=== PATIENT | female | born 1990 | race Caucasian/White ===

== ENCOUNTER 2017-03-18 05:53 | Inpatient (IN) ==
[2017-03-18] MEDS ORDERED: BUTORPHANOL 2 MG/ML VIAL IV PRN (06:14)
[2017-03-18] MEDS: LACTATED RINGERS 1,000 ML IV SCH ×2 (06:28→13:42)
[2017-03-18 06:37] LABS: Basophils % 0.3 % (0.0-0.8); Eosinophils # 0.2 10*3/uL (0.0-0.87); Eosinophils % 1.2 % (0.00-10.9); Hematocrit 34.3 VOL% (35.7-47.0); Hemoglobin 11.5 GM/DL (12.0-16.0); Immature Granulocytes % 1.2 %; Immature Granulocytes Absolute 0.16 #; Lymphocytes % 15.3 % (21.3-54.2); Mean Corpuscular HGB Conc 33.5 GM/DL (32-36); Mean Corpuscular Hemoglobin 30 PG (27-34); Mean Corpuscular Volume 87.9 FL (87-102); Mean Platelet Volume 12.8 FL (9.6-12.0); Monocytes # 1.3 10*3/uL (0.11-0.8); Monocytes % 10.4 % (1.7-12.7); Neutrophils # 9.3 10*3/uL (1.4-7.4); Neutrophils % 71.6 % (38.7-73.9); Platelet Count 160 T/CUMM (130-400); Red Cell Distribution Width 14.4 % (9.3-17.3); White Blood Count 12.9 T/CUMM (4-12)
[2017-03-18] MEDS: OXYTOCIN/LR 20 UNIT/1,000 ML BAG IV SCH (06:50)
[2017-03-18] MEDS ORDERED: CLINDAMYCIN INJ 900 MG in PREMIX 1 EACH IV SCH (07:00)
[2017-03-18] MEDS: ONDANSETRON 4 MG/2 ML VIAL IV PRN (14:50)
[2017-03-18] MEDS: CLINDAMYCIN INJ 900 MG in PREMIX 1 EACH IV SCH (16:23)
[2017-03-18] MEDS ORDERED: CITRIC ACID/SODIUM CITRATE 30 ML UDCUP PO ONE (18:20)
[2017-03-18] MEDS ORDERED: FAMOTIDINE 20 MG/2 ML VIAL IV ONE (18:20)
[2017-03-18] MEDS ORDERED: ONDANSETRON 4 MG/2 ML VIAL ONE (18:55)
[2017-03-18] MEDS ORDERED: PHENYLEPHRINE 1 MG/10 ML SYRINGE IV ONE (18:55)
[2017-03-18] MEDS ORDERED: ACETAMINOPHEN 325 MG TABLET PO PRN (19:58)
[2017-03-18] MEDS ORDERED: OXYTOCIN/LR 20 UNIT/1,000 ML BAG IV ONE (19:58)
[2017-03-18] MEDS ORDERED: IBUPROFEN 800 MG TABLET PO PRN (19:58)
[2017-03-18] MEDS ORDERED: MAGNESIUM HYDROXIDE SUSP 30 ML UDCUP PO PRN (19:58)
[2017-03-18] MEDS ORDERED: ONDANSETRON 4 MG/2 ML VIAL IV PRN (19:58)
[2017-03-18] MEDS ORDERED: SIMETHICONE CHEW 80 MG TABLET PO PRN (19:58)
[2017-03-18] MEDS ORDERED: RHO(D) IMMUNE GLOBULIN 300 MCG SYRINGE IM ONE (19:58)
--- NOTE | 2017-03-18 20:05 | History and Physical Update ---
History and Physical Update - History and Physical H&P was reviewed, the patient examined and there: are no changes in the patients condition since last H&P was completed. - Dictation Physical: refer to scanned H&P - Physical Exam Mental Status: alert and oriented Heart: regular rate and rhythm Lung: clear to auscultation Abdomen: within normal limits Vitals: within normal limits History and Physical Changes: 39 weeks for induction. care without complications. GBS + with a Ceclor allergy.
[2017-03-18] MEDS ORDERED: MORPHINE 10 MG/10 ML VIAL ONE (20:06)
[2017-03-18 20:19] LABS: Apearance,Urine CLEAR (Clear); Bilirubin,Urine Negative (Negative); Blood, Urine Small mg/dL (Negative); Glucose,Urine (UA) Negative (Negative); Ketones,Urine 80 mg/dL (Negative); Mucus,Urine Occasional /LPF (Occasional); Nitrite,Urine Negative (Negative); Protein,Urine Negative; RBC,Urine 2 /HPF (0-4); Squamous Epithelial Cell,Urine Occasional /HPF (0-10); Urine Color Yellow (Yellow); Urine Urobilinogen < 2.0 EU/DL (0.2-1.0); WBC,Urine 11 /HPF (0-6)
[2017-03-18] MEDS: DOCUSATE SODIUM 100 MG CAPSULE PO SCH (21:10)
[2017-03-19] MEDS ORDERED: HYDROmorphone 2 MG/1 ML VIAL IV PRN (00:09)
[2017-03-19] MEDS: ONDANSETRON 4 MG/2 ML VIAL IV PRN (00:15)
[2017-03-19] MEDS: LACTATED RINGERS 1,000 ML IV SCH ×4 (02:57→21:12)
[2017-03-19] MEDS: CLINDAMYCIN INJ 900 MG in PREMIX 1 EACH IV SCH ×3 (03:49→21:13)
[2017-03-19 05:05] LABS: Basophils % 0.2 % (0.0-0.8); Eosinophils % 0.1 % (0.00-10.9); Hematocrit 28.5 VOL% (35.7-47.0); Hemoglobin 9.6 GM/DL (12.0-16.0); Immature Granulocytes % 0.8 %; Lymphocytes # 1.2 10*3/uL (1.4-4.0); Lymphocytes % 9.3 % (21.3-54.2); Mean Corpuscular HGB Conc 33.7 GM/DL (32-36); Mean Corpuscular Hemoglobin 29 PG (27-34); Mean Corpuscular Volume 85.8 FL (87-102); Mean Platelet Volume 13.3 FL (9.6-12.0); Monocytes # 1.2 10*3/uL (0.11-0.8); Monocytes % 9.3 % (1.7-12.7); Neutrophils # 10.4 10*3/uL (1.4-7.4); Neutrophils % 80.3 % (38.7-73.9); Platelet Count 148 T/CUMM (130-400); Red Blood Count 3.32 MC/CUMM (3.8-5.5); Red Cell Distribution Width 14.4 % (9.3-17.3)
--- NOTE | 2017-03-19 06:51 | Anesthesia Post-Op ---
Anesthesia Post OP - Post Ansesthetic Evaluation Patient seen in post op: Yes Resp: within normal limits CV: within normal limits Mental: within normal limits Temp: within normal limits [id number]: within normal limits Nausea and Vomiting: within normal limits Pain: within normal limits
--- NOTE | 2017-03-19 07:30 | OB/GYN Progress Note ---
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 Exam ARCHITECTURE MANAGER - Constitutional Vitals: Vital Signs Temp Pulse Resp BP Pulse Ox 03/19/17 07:12 97 F L 95 H 18 105/68 97 03/19/17 03:52 97.1 F L 101 H 20 103/57 97 03/19/17 01:40 98 H 20 124/72 96 03/19/17 00:40 89 18 109/57 97 03/18/17 23:40 97.4 F L 95 H 20 114/64 96 03/18/17 23:10 100 H 20 128/73 97 03/18/17 22:40 97.2 F L 86 20 111/73 98 03/18/17 16:00 97.8 F 100 H 18 121/68 03/18/17 12:00 98.6 F 110 H 20 129/71 03/18/17 08:00 97.6 F 100 H 18 126/77 General appearance: normal weight, no acute distress - Head Head exam: Present: normal inspection, normocephalic - Eye Eye exam: Present: EOMI - Respiratory Respiratory exam: Present: clear to auscultation bilaterally - Cardiovascular Cardiovascular exam: Present: regular rate and rhythm - GI/Abdominal GI/Abdominal exam: Present: soft (fundus firm, nontender; dressing clean, dry) - Extremities Exam Extremities exam: Present: normal inspection - Neurological Exam Neurological exam: Present: alert, oriented X3 - Psychiatric Psychiatric exam: Present: normal affect, normal mood - Skin Skin exam: Present: normal color, warm Results - Labs CBC & BMP: 03/19/17 03:30 Lab Results: I have reviewed the past 24 hour labs
--- NOTE | 2017-03-19 07:33 | Discharge Summary ---
Hospital Course - Hospital Course Hospital Course: Pt admitted for induction. Cervix with low Alberto's score with unengaged vertex , so discussed with pt mgt options including delaying delivery for at least another week to see if improvement of this. She wished to proceed with induction. Cytotec started at 0800. The vertex remained unengaged by 6 pm and pt requested to proceed with C/S. She underwent C/S without complication. She was transferred to in stable condition. Diagnosis - Discharge Diagnosis (1) delivery delivered Status: Acute Discharge Plan - Discharge Data Disposition: Disch To Home/Self Care Condition at Discharge: Stable Discharge Diet: regular diet Activity: other (pelvic rest x 6 wks) Hygiene: may shower Weight Bearing at Discharge: full weight bearing Driving: not until seen by doctor Contact your physician if you experience:: fever over 101, Difficulty voiding, Redness or swelling, Nausea/Vomiting, Shortness of breath, Bleeding, pain uncontrolled by pain medications - Discharge Medications New Ibuprofen Tab [Motrin Tab] 800 mg PO Q8H PRN #30 tablet PRN Reason: Pain Severe (8-10) HYDROcodone/ACETAMIN 5-325 [[place] 5-325] 2 tablet PO Q6H PRN #30 tablet PRN Reason: Pain Severe (8-10) No Action Vit No.124/Iron/Folic [ Vitamin Tablet] 1 tablet PO DAILY MDD one tab - Follow Up or Referral Follow Up: Starla Gibbons DO [Primary Care Provider] - 1 Week - Forms/Instructions Exam - Constitutional Vitals: Period Temp Pulse Resp BP Sys/Briggs Pulse Ox Last 24 Hr 97 F-98.6 F 86-110 18-20 103-129/57-77 96-98 General appearance: normal weight, no acute distress - Head Head exam: Present: normal inspection, normocephalic - Eye Eye exam: Present: EOMI - Respiratory Respiratory exam: Present: clear to auscultation bilaterally - Cardiovascular Cardiovascular exam: Present: regular rate and rhythm - GI/Abdominal GI/Abdominal exam: Present: soft (fundus firm, nontender; incision intact without E/I/D) - Extremities Exam Extremities exam: Present: normal inspection - Neurological Exam Neurological exam: Present: alert, oriented X3 - Psychiatric Psychiatric exam: Present: normal affect, normal mood - Skin Skin exam: Present: normal color, warm Discharge Results Procedures and tests throughout hospitalization: Pending Orders 03/18/17 Urine Culture Routine Labs on day of discharge: Labs from last 24 hours 03/19/17 03/18/17 03/18/17 03:30 19:15 06:29 WBC 13.0 H RBC 3.32 L Hgb 9.6 L Hct 28.5 L MCV 85.8 L MCH 29 MCHC 33.7 RDW 14.4 Plt Count 148 MPV 13.3 H Neut % (Auto) 80.3 H Lymph % (Auto) 9.3 L [place] % (Auto) 9.3 Eos % (Auto) 0.1 Baso % (Auto) 0.2 Neut # (Auto) 10.4 H Lymph # (Auto) 1.2 L [place] # (Auto) 1.2 H Eos # (Auto) 0.0 Baso # (Auto) 0.0 Immature Gran % 0.8 Nucleated RBC % 0.0 Immature Gran # 0.10 Nucleated RBCs # 0.00 Urine Color Yellow Urine Appearance Clear Urine pH 6.0 Ur Specific [place] 1.010 Urine Protein Negative Urine Glucose (UA) Negative Urine Ketones 80 Urine Blood Small Urine Nitrate Negative Urine Bilirubin Negative Urine Urobilinogen < 2.0 H Urine Leukocytes Negative Urine RBC 2 Urine WBC 11 Ur Squamous Epith Cells Occasional Urine Mucus Occasional Ur Culture Indicated? Results to follow Treponema pallidum IgG Nonreactive Blood Type Antibody Screen 03/18/17 06:29 WBC RBC Hgb Hct MCV MCH MCHC RDW Plt Count MPV Neut % (Auto) Lymph % (Auto) [place] % (Auto) Eos % (Auto) Baso % (Auto) Neut # (Auto) Lymph # (Auto) [place] # (Auto) Eos # (Auto) Baso # (Auto) Immature Gran % Nucleated RBC % Immature Gran # Nucleated RBCs # Urine Color Urine Appearance Urine pH Ur Specific [place] Urine Protein Urine Glucose (UA) Urine Ketones Urine Blood Urine Nitrate Urine Bilirubin Urine Urobilinogen Urine Leukocytes Urine RBC Urine WBC Ur Squamous Epith Cells Urine Mucus Ur Culture Indicated? Treponema pallidum IgG Blood Type O POSITIVE Antibody Screen Negative DS: Provider Date of admission: 03/18/17 06:14 Primary care physician: Starla Gibbons DO Attending physician on admission: Starla Gibbons DO Consults: 03/18/17 06:14 Consult to Anesthesiology [CONS] Routine Consulting Provider: Reason for Anesthesiology: Epidural Consult Comment: Epidural for pain managment 03/18/17 19:58 Consult to Pigment And Lacquer Mixer [CONS] Routine Consult Pigment And Lacquer Mixer: Breast Feeding Discharging clinician: Starla Gibbons DO Expected date of discharge: 03/21/17
[2017-03-19] MEDS: MULTIVITAMIN (PRENATAL) TABLET PO SCH (08:34)
[2017-03-19] MEDS: DOCUSATE SODIUM 100 MG CAPSULE PO SCH ×2 (08:34→21:02)
[2017-03-19] MEDS: OXYTOCIN/LR 20 UNIT/1,000 ML BAG IV SCH (21:03)
[2017-03-20] MEDS: LACTATED RINGERS 1,000 ML IV SCH ×2 (05:11)
[2017-03-20 07:33] VITALS: BP 103/62
[2017-03-20] MEDS: DOCUSATE SODIUM 100 MG CAPSULE PO SCH (09:19)
[2017-03-20] MEDS: MULTIVITAMIN (PRENATAL) TABLET PO SCH (09:20)
--- NOTE | 2017-03-20 10:20 | Pathology Report from [facility] ---
ACCESSION # : [id number] PATIENT NAME : Bridget Gallardo ORDERING DR : JOSELIN CARABALLO CLINICAL HX: IUP @ 39.1 wks gestation, arrest of descent POST-OP DX: Same SPECIMEN INFO: Placenta GROSS DESCRIPTION: Received fresh labeled "BRIDGET GALLARDO" is a 487 gm placenta measuring 18.0 x 20.5 x 2.8 cm. The feral membranes are pink larry and translucent. The umbilical cord measures 49.0 cm, contains three vessels and is pericentrally inserted. The surface is blue godwin and intact. The maternal surface displays intact hemorrhagic cotyledons with no abnormalities appreciated upon sectioning. Sections submitted A- membranes and cord, B- and maternal surfaces. DIAGNOSIS FOR BRIDGET GALLARDO: PLACENTA, MEMBRANES, UMBILICAL CORD: Focal placental infarction with dystrophic calcification, mild intervillous blood. Tri-vessel umbilical cord, pericentrally inserted. Membranes with focal chronic inflammation and attached blood. SERVICE DATE: 03/19/2017 REPORT DATE: 03/20/2017 PATHOLOGIST: Spencer Naidu M.D. [facility]
== END 2017-03-20 14:05 | disposition home or self-care (01) | DRG 766 ==
LOC: N.LDOUT 05:53 → N.LD 05:56 → N.OB 22:55
PROVIDERS: ADMIT Obstetrics & Gynecology; ATTEND Obstetrics & Gynecology
PROC: LDCSECT (ICD-10-PCS; 2017-03-18 18:55)

== ENCOUNTER 2018-09-01 05:57 | Inpatient (IN) ==
[2018-09-01] MEDS ORDERED: FAMOTIDINE 20 MG/2 ML VIAL IV ONE (06:07)
[2018-09-01] MEDS ORDERED: CITRIC ACID/SODIUM CITRATE 30 ML UDCUP PO ONE (06:07)
[2018-09-01] MEDS ORDERED: CLINDAMYCIN INJ 900 MG in PREMIX 1 EACH IV ONE (06:11)
[2018-09-01] MEDS: LACTATED RINGERS 1,000 ML IV SCH ×3 (06:20→17:59)
[2018-09-01 06:40] LABS: Basophils % 0.3 % (0.0-0.8); Eosinophils # 0.1 10*3/uL (0.0-0.87); Hematocrit 33.5 VOL% (35.7-47.0); Hemoglobin 10.9 GM/DL (12.0-16.0); Immature Granulocytes % 0.9 %; Immature Granulocytes Absolute 0.12 #; Lymphocytes # 2.9 10*3/uL (1.4-4.0); Lymphocytes % 21.3 % (21.3-54.2); Mean Corpuscular HGB Conc 32.5 GM/DL (32-36); Mean Corpuscular Hemoglobin 29 PG (27-34); Mean Corpuscular Volume 87.9 FL (87-102); Monocytes # 1.3 10*3/uL (0.11-0.8); Monocytes % 9.7 % (1.7-12.7); Neutrophils % 66.8 % (38.7-73.9); Platelet Count 175 T/CUMM (130-400); Red Blood Count 3.81 MC/CUMM (3.8-5.5); Red Cell Distribution Width 14.6 % (9.3-17.3); White Blood Count 13.5 T/CUMM (4-12)
[2018-09-01 07:11] LABS: Alanine Aminotransferase 13 U/L (13-56); Albumin 2.4 G/DL (3.4-5.0); Alkaline Phosphatase 156 U/L (45-117); Aspartate Amino Transferase 10 U/L (0-37); Bilirubin,Total < 0.39 MG/DL (0.2-1.0); Blood Urea Nitrogen 10 MG/DL (7-18); Calcium 8.8 MG/DL (8.5-10.1); Glucose 90 MG/DL (74-106); Osmolality,Calculated 277.4 MOS/KG (273-304); Potassium 3.8 MMOL/L (3.5-5.1); Sodium 140 MMOL/L (136-145); Total Protein 6.4 G/DL (6.4-8.3)
[2018-09-01] MEDS ORDERED: OXYTOCIN/LR 20 UNIT/1,000 ML BAG IV ONE ×2 (07:14→11:10)
[2018-09-01 10:08] LABS: Apearance,Urine CLEAR (Clear); Bacteria,Urine Occasional /HPF (Few); Bilirubin,Urine Negative (Negative); Blood, Urine Negative (Negative); Glucose,Urine (UA) Negative (Negative); Ketones,Urine 5 mg/dL (Negative); Mucus,Urine Few /LPF (Occasional); Nitrite,Urine Negative (Negative); Protein,Urine Negative; RBC,Urine <1 /HPF (0-4); Urine Color Yellow (Yellow); Urine Specific Gravity 1.011 (1.001-1.035); Urine Urobilinogen < 2.0 EU/DL (0.2-1.0); WBC,Urine 1 /HPF (0-6)
[2018-09-01] MEDS ORDERED: PHENYLEPHRINE 1 MG/10 ML SYRINGE IV ONE (10:28)
[2018-09-01] MEDS ORDERED: fentaNYL 100 MCG/2 ML VIAL ONE (10:29)
[2018-09-01] MEDS ORDERED: MIDAZOLAM 2 MG/2 ML VIAL ONE (10:29)
[2018-09-01] MEDS ORDERED: MORPHINE 10 MG/10 ML VIAL ONE (10:30)
[2018-09-01] MEDS ORDERED: BUPIVACAINE SPINAL 0.75% 2 ML AMP SPINAL ONE (10:31)
[2018-09-01] MEDS ORDERED: KETOROLAC 30 MG/1 ML VIAL IM ONE ×2 (12:17)
[2018-09-01] MEDS ORDERED: KETOROLAC 30 MG/1 ML VIAL IV PRN (12:30)
[2018-09-01] MEDS ORDERED: ONDANSETRON 4 MG/2 ML VIAL IV PRN (15:42)
[2018-09-01] MEDS ORDERED: ONDANSETRON 4 MG/2 ML VIAL ONE (15:44)
[2018-09-01] MEDS: oxyCODONE/ACETAMINOPHEN 5-325 MG TABLET PO PRN (21:20)
[2018-09-01] MEDS: IBUPROFEN 800 MG TABLET PO PRN (21:20)
[2018-09-02] MEDS: LACTATED RINGERS 1,000 ML IV SCH ×2 (01:59)
[2018-09-02] MEDS: IBUPROFEN 800 MG TABLET PO PRN ×4 (04:09→23:28)
[2018-09-02] MEDS: oxyCODONE/ACETAMINOPHEN 5-325 MG TABLET PO PRN ×4 (04:09→23:29)
[2018-09-02 05:53] LABS: Basophils % 0.4 % (0.0-0.8); Eosinophils # 0.1 10*3/uL (0.0-0.87); Eosinophils % 0.7 % (0.00-10.9); Hematocrit 30.3 VOL% (35.7-47.0); Hemoglobin 9.8 GM/DL (12.0-16.0); Immature Granulocytes % 0.4 %; Immature Granulocytes Absolute 0.04 #; Lymphocytes # 2.2 10*3/uL (1.4-4.0); Lymphocytes % 19.5 % (21.3-54.2); Mean Corpuscular HGB Conc 32.3 GM/DL (32-36); Mean Corpuscular Hemoglobin 29 PG (27-34); Mean Corpuscular Volume 88.9 FL (87-102); Mean Platelet Volume 12.9 FL (9.6-12.0); Platelet Count 125 T/CUMM (130-400); Red Blood Count 3.41 MC/CUMM (3.8-5.5); Red Cell Distribution Width 14.6 % (9.3-17.3); White Blood Count 11.4 T/CUMM (4-12)
[2018-09-02] MEDS ORDERED: MAGNESIUM HYDROXIDE SUSP 30 ML UDCUP PO PRN (07:29)
[2018-09-02] MEDS: SIMETHICONE CHEW 80 MG TABLET PO PRN (09:19)
[2018-09-02] MEDS: DOCUSATE SODIUM 100 MG CAPSULE PO SCH ×2 (09:19→22:40)
[2018-09-03] MEDS: IBUPROFEN 800 MG TABLET PO PRN (05:39)
[2018-09-03] MEDS: oxyCODONE/ACETAMINOPHEN 5-325 MG TABLET PO PRN (05:41)
[2018-09-03 07:01] VITALS: BP 103/58
[2018-09-03] MEDS: DOCUSATE SODIUM 100 MG CAPSULE PO SCH (08:42)
[2018-09-03] MEDS: SIMETHICONE CHEW 80 MG TABLET PO PRN (08:43)
== END 2018-09-03 12:00 | disposition home or self-care (01) | DRG 788 ==
LOC: N.LDOUT 05:57 → N.LD 05:58 → N.OB 13:18
PROVIDERS: ADMIT Obstetrics & Gynecology; ATTEND Obstetrics & Gynecology
PROC: LDCSECT (ICD-10-PCS; 2018-09-01 09:00)

== ENCOUNTER 2020-09-24 05:35 | Inpatient (IN) ==
[2020-09-24] MEDS ORDERED: LACTATED RINGERS 500 ML IV PRN (05:44)
[2020-09-24] MEDS ORDERED: LACTATED RINGERS 250 ML IV ONE (05:44)
[2020-09-24] MEDS ORDERED: ONDANSETRON 4 MG/2 ML VIAL IV PRN ×2 (05:44→08:25)
[2020-09-24] MEDS ORDERED: FAMOTIDINE 20 MG/2 ML VIAL IV ONE (05:46)
[2020-09-24] MEDS ORDERED: CITRIC ACID/SODIUM CITRATE 30 ML UDCUP PO ONE (05:46)
[2020-09-24] MEDS ORDERED: LACTATED RINGERS 1,000 ML IV SCH ×2 (06:00→08:30)
[2020-09-24] MEDS ORDERED: CLINDAMYCIN INJ 900 MG in PREMIX 1 EACH IV ONE (06:05)
[2020-09-24 06:27] LABS: Basophils % 0.2 % (0.0-0.8); Eosinophils # 0.1 10*3/uL (0.0-0.87); Eosinophils % 0.7 % (0.00-10.9); Hematocrit 32.3 VOL% (35.7-47.0); Hemoglobin 10.8 GM/DL (12.0-16.0); Immature Granulocytes % 0.6 %; Immature Granulocytes Absolute 0.06 #; Lymphocytes # 2.2 10*3/uL (1.4-4.0); Lymphocytes % 22.6 % (21.3-54.2); Mean Corpuscular HGB Conc 33.4 GM/DL (32-36); Mean Corpuscular Volume 85.9 FL (87-102); Mean Platelet Volume 12.4 FL (9.6-12.0); Monocytes % 10.3 % (1.7-12.7); Neutrophils % 65.6 % (38.7-73.9); Platelet Count 133 T/CUMM (130-400); Red Blood Count 3.76 MC/CUMM (3.8-5.5); Red Cell Distribution Width 15.9 % (9.3-17.3); White Blood Count 9.7 T/CUMM (4-12)
[2020-09-24] MEDS ORDERED: BUPIVACAINE SPINAL 0.75% 2 ML AMP SPINAL ONE (06:32)
[2020-09-24] MEDS ORDERED: ONDANSETRON 4 MG/2 ML VIAL ONE (06:33)
[2020-09-24] MEDS ORDERED: MORPHINE 10 MG/10 ML VIAL ONE (06:35)
[2020-09-24] MEDS ORDERED: ACETAMINOPHEN 1,000 MG/100 ML VIAL IV ONE (06:35)
[2020-09-24] MEDS ORDERED: fentaNYL 100 MCG/2 ML VIAL ONE (06:35)
[2020-09-24] MEDS ORDERED: BUPIVACAINE MPF 0.25% 30 ML VIAL ONE (06:37)
[2020-09-24 06:51] LABS: Alanine Aminotransferase 9 U/L (13-56); Albumin 2.4 G/DL (3.4-5.0); Alkaline Phosphatase 125 U/L (45-117); Aspartate Amino Transferase 13 U/L (0-37); Bilirubin,Total < 0.39 MG/DL (0.2-1.0); Blood Urea Nitrogen 7 MG/DL (7-18); Calcium 8.7 MG/DL (8.5-10.1); Estimated Glom Filtration Rate 157 ML/MIN; Glucose 78 MG/DL (74-106); Osmolality,Calculated 271.7 MOS/KG (273-304); Total Protein 6.3 G/DL (6.4-8.3)
[2020-09-24 07:06] LABS: Hypochromasia 1+; Microcytosis 1+
[2020-09-24] MEDS ORDERED: CARBOPROST TROMETHAMINE 250 MCG/ML AMP IM ONE (07:06)
[2020-09-24] MEDS ORDERED: OXYTOCIN/LR 20 UNIT/1,000 ML BAG IV ONE ×2 (07:06→08:25)
[2020-09-24] MEDS ORDERED: miSOPROStoL 200 MCG TABLET ONE (07:06)
[2020-09-24] MEDS ORDERED: METHYLERGONOVINE 0.2 MG/1 ML AMP ONE (07:06)
[2020-09-24] MEDS ORDERED: TRANEXAMIC ACID 1,000 MG/10 ML VIAL ONE (07:06)
[2020-09-24 07:07] LABS: Platelet Estimate Adequate
[2020-09-24] MEDS ORDERED: SODIUM CHLORIDE 0.9% 0 ML IV ONE (07:07)
[2020-09-24] MEDS ORDERED: DEXAMETHASONE 4 MG/1 ML VIAL ONE (07:07)
[2020-09-24] MEDS ORDERED: PHENYLEPHRINE 1 MG/10 ML SYRINGE IV ONE ×2 (07:38→07:56)
[2020-09-24] MEDS ORDERED: ePHEDrine 50 MG/ML VIAL ONE (08:02)
[2020-09-24 08:09] LABS: Cord Venous Blood HCO3 21.8 MMOL/L; Cord Venous Blood PCO2 37.3 MMHG; Cord Venous Blood PO2 32.6 MMHG
[2020-09-24 08:15] LABS: Bilirubin,Urine Negative (Negative); Blood, Urine Negative (Negative); Glucose,Urine (UA) Negative (Negative); Ketones,Urine Negative (Negative); Nitrite,Urine Negative (Negative); Protein,Urine Negative; RBC,Urine <1 /HPF (0-4); Squamous Epithelial Cell,Urine Occasional /HPF (0-10); Urine Appearance CLEAR (Clear); Urine Color Straw (Yellow); Urine Specific Gravity 1.005 (1.001-1.035); Urine Urobilinogen < 2.0 EU/DL (0.2-1.0); WBC,Urine <1 /HPF (0-6)
[2020-09-24] MEDS ORDERED: ACETAMINOPHEN 325 MG TABLET PO PRN (08:25)
[2020-09-24] MEDS ORDERED: MAGNESIUM HYDROXIDE SUSP 30 ML UDCUP PO PRN (08:25)
[2020-09-24] MEDS ORDERED: RHO(D) IMMUNE GLOBULIN 300 MCG SYRINGE IM ONE (08:25)
[2020-09-24] MEDS ORDERED: SIMETHICONE CHEW 80 MG TABLET PO PRN (08:25)
[2020-09-24] MEDS: CLINDAMYCIN INJ 900 MG in PREMIX 1 EACH IV SCH ×2 (14:41→23:04)
[2020-09-24] MEDS: IBUPROFEN 800 MG TABLET PO PRN (15:22)
[2020-09-24] MEDS: oxyCODONE/ACETAMINOPHEN 5-325 MG TABLET PO PRN ×2 (15:23→19:57)
[2020-09-24] MEDS: DOCUSATE SODIUM 100 MG CAPSULE PO SCH ×2 (19:57→21:50)
[2020-09-24 20:13] LABS: Basophils % 0.2 % (0.0-0.8); Eosinophils % 0.2 % (0.00-10.9); Hematocrit 28.2 VOL% (35.7-47.0); Hemoglobin 9.5 GM/DL (12.0-16.0); Immature Granulocytes % 0.5 %; Immature Granulocytes Absolute 0.07 #; Lymphocytes # 1.6 10*3/uL (1.4-4.0); Lymphocytes % 12.4 % (21.3-54.2); Mean Corpuscular HGB Conc 33.7 GM/DL (32-36); Mean Corpuscular Volume 85.7 FL (87-102); Mean Platelet Volume 13.3 FL (9.6-12.0); Monocytes % 8.7 % (1.7-12.7); Platelet Count 128 T/CUMM (130-400); Red Blood Count 3.29 MC/CUMM (3.8-5.5); Red Cell Distribution Width 15.6 % (9.3-17.3); White Blood Count 12.8 T/CUMM (4-12)
[2020-09-24] MEDS: MULTIVITAMIN (PRENATAL) TABLET PO SCH (21:51)
[2020-09-25] MEDS: IBUPROFEN 800 MG TABLET PO PRN ×3 (01:15→19:57)
[2020-09-25] MEDS: oxyCODONE/ACETAMINOPHEN 5-325 MG TABLET PO PRN ×5 (01:45→19:58)
[2020-09-25 06:47] LABS: Basophils % 0.3 % (0.0-0.8); Eosinophils # 0.1 10*3/uL (0.0-0.87); Eosinophils % 0.6 % (0.00-10.9); Hematocrit 29.5 VOL% (35.7-47.0); Hemoglobin 9.8 GM/DL (12.0-16.0); Immature Granulocytes % 0.6 %; Immature Granulocytes Absolute 0.07 #; Lymphocytes # 2.4 10*3/uL (1.4-4.0); Lymphocytes % 19.3 % (21.3-54.2); Mean Corpuscular HGB Conc 33.2 GM/DL (32-36); Mean Corpuscular Volume 87.5 FL (87-102); Mean Platelet Volume 12.6 FL (9.6-12.0); Monocytes % 8.9 % (1.7-12.7); Neutrophils % 70.3 % (38.7-73.9); Platelet Count 109 T/CUMM (130-400); Red Blood Count 3.37 MC/CUMM (3.8-5.5); Red Cell Distribution Width 15.9 % (9.3-17.3); White Blood Count 12.4 T/CUMM (4-12)
[2020-09-25 07:11] LABS: Hypochromasia 1+; Microcytosis 1+; Ovalocytes Slight
[2020-09-25] MEDS: MULTIVITAMIN (PRENATAL) TABLET PO SCH ×2 (07:17→08:59)
[2020-09-25] MEDS: DOCUSATE SODIUM 100 MG CAPSULE PO SCH ×3 (07:17→20:18)
[2020-09-26] MEDS: oxyCODONE/ACETAMINOPHEN 5-325 MG TABLET PO PRN ×2 (02:47→10:12)
[2020-09-26] MEDS: IBUPROFEN 800 MG TABLET PO PRN ×2 (02:47→10:12)
[2020-09-26] MEDS: MULTIVITAMIN (PRENATAL) TABLET PO SCH (09:19)
[2020-09-26] MEDS: DOCUSATE SODIUM 100 MG CAPSULE PO SCH (09:19)
[2020-09-26 11:29] VITALS: BP 117/67
== END 2020-09-26 13:25 | disposition home or self-care (01) | DRG 788 ==
LOC: N.LDOUT 05:35 → N.LD 05:36 → N.OB 11:21
PROVIDERS: ADMIT Obstetrics & Gynecology; ATTEND Obstetrics & Gynecology
PROC: LDCSECT (ICD-10-PCS; 2020-09-24 07:00)

== ENCOUNTER 2022-07-16 05:54 | Inpatient (IN) ==
[2022-07-16] MEDS ORDERED: TRANEXAMIC ACID 1,000 MG in SODIUM CHLORIDE 0.9% 100 ML IV PRN (06:01)
[2022-07-16] MEDS ORDERED: CLINDAMYCIN INJ 900 MG/50 ML PREMIX IV ONE (06:01)
[2022-07-16] MEDS ORDERED: FAMOTIDINE 20 MG/2 ML VIAL IV ONE (06:01)
[2022-07-16] MEDS ORDERED: CARBOPROST TROMETHAMINE 250 MCG/ML AMP IM PRN (06:01)
[2022-07-16] MEDS ORDERED: miSOPROStoL 200 MCG TABLET RECTAL PRN (06:01)
[2022-07-16] MEDS ORDERED: METHYLERGONOVINE 0.2 MG/1 ML AMP IM PRN (06:01)
[2022-07-16] MEDS ORDERED: CITRIC ACID/SODIUM CITRATE 30 ML UDCUP PO ONE (06:01)
[2022-07-16] MEDS ORDERED: OXYTOCIN/LR 20 UNIT/1,000 ML BAG IV ONE ×3 (06:30→08:48)
[2022-07-16 06:31] LABS: Basophils % 0.3 % (0.0-0.8); Eosinophils # 0.2 10*3/uL (0.0-0.87); Eosinophils % 1.8 % (0.00-10.9); Hematocrit 31.5 VOL% (35.7-47.0); Hemoglobin 10.4 GM/DL (12.0-16.0); Immature Granulocytes % 0.4 %; Immature Granulocytes Absolute 0.05 #; Lymphocytes # 1.8 10*3/uL (1.4-4.0); Lymphocytes % 14.8 % (21.3-54.2); Mean Corpuscular Volume 85.6 FL (87-102); Mean Platelet Volume 12.4 FL (9.6-12.0); Monocytes # 1.2 10*3/uL (0.11-0.8); Monocytes % 9.7 % (1.7-12.7); Platelet Count 160 T/CUMM (130-400); Red Blood Count 3.68 MC/CUMM (3.8-5.5); Red Cell Distribution Width 14.7 % (9.3-17.3)
[2022-07-16] MEDS ORDERED: BUPIVACAINE SPINAL 0.75% 2 ML AMP SPINAL ONE (06:59)
[2022-07-16] MEDS ORDERED: METOCLOPRAMIDE 10 MG/2 ML VIAL ONE (06:59)
[2022-07-16] MEDS ORDERED: ONDANSETRON 4 MG/2 ML VIAL ONE (06:59)
[2022-07-16] MEDS ORDERED: buprenorphine HCL 0.3 MG/ML VIAL ONE (06:59)
[2022-07-16] MEDS ORDERED: miSOPROStoL 200 MCG TABLET ONE (07:04)
[2022-07-16] MEDS ORDERED: CARBOPROST TROMETHAMINE 250 MCG/ML AMP IM ONE (07:05)
[2022-07-16] MEDS ORDERED: METHYLERGONOVINE 0.2 MG/1 ML AMP ONE (07:05)
[2022-07-16] MEDS ORDERED: PHENYLEPHRINE 1 MG/10 ML SYRINGE IV ONE (07:37)
[2022-07-16] MEDS ORDERED: CALCIUM CHLORIDE 1,000 MG/10 ML VIAL IV ONE (07:37)
[2022-07-16] MEDS ORDERED: LACTATED RINGERS 1,000 ML IV ONE (07:37)
[2022-07-16] MEDS ORDERED: GLYCOPYRROLATE 0.4 MG/2 ML VIAL ONE (07:37)
[2022-07-16] MEDS ORDERED: LACTATED RINGERS 2,000 ML IV ONE (07:47)
[2022-07-16] MEDS ORDERED: KETOROLAC 30 MG/1 ML VIAL ONE (07:55)
[2022-07-16 08:08] LABS: Cord Arterial Blood HCO3 21.9 MMOL/L
[2022-07-16 08:10] LABS: Cord Venous Blood HCO3 22.7 MMOL/L; Cord Venous Blood PCO2 43.4 MMHG
[2022-07-16] MEDS: LACTATED RINGERS 1,000 ML IV SCH ×2 (08:20→18:52)
[2022-07-16 08:31] LABS: Bacteria,Urine Occasional /HPF (Few); Mucus,Urine Occasional /LPF (Occasional); Squamous Epithelial Cell,Urine Occasional /HPF (0-10)
[2022-07-16 08:33] LABS: Bilirubin,Urine Negative (Negative); Blood, Urine Trace mg/dL (Negative); Glucose,Urine (UA) Negative (Negative); Ketones,Urine Negative (Negative); Nitrite,Urine Negative (Negative); Protein,Urine 30 mg/dL (Negative); Urine Appearance Clear (Clear); Urine Color Yellow (Yellow); Urine Urobilinogen 0.2 eU/dL (<2.0)
[2022-07-16] MEDS ORDERED: MAGNESIUM HYDROXIDE SUSP 30 ML UDCUP PO PRN (08:48)
[2022-07-16] MEDS ORDERED: SIMETHICONE CHEW 80 MG TABLET PO PRN (08:48)
[2022-07-16] MEDS ORDERED: RHO(D) IMMUNE GLOBULIN 300 MCG SYRINGE IM ONE (08:48)
[2022-07-16] MEDS ORDERED: ACETAMINOPHEN 325 MG TABLET PO PRN (08:48)
[2022-07-16] MEDS ORDERED: ONDANSETRON 4 MG/2 ML VIAL IV PRN (08:48)
[2022-07-16] MEDS ORDERED: LACTATED RINGERS 1,000 ML IV SCH (09:00)
[2022-07-16] MEDS: ACETAMINOPHEN 500 MG TABLET PO SCH ×2 (11:19→16:38)
[2022-07-16] MEDS: oxyCODONE/ACETAMINOPHEN 5-325 MG TABLET PO PRN (13:00)
[2022-07-16] MEDS: MULTIVITAMIN (PRENATAL) TABLET PO SCH (13:06)
[2022-07-16] MEDS: DOCUSATE SODIUM 100 MG CAPSULE PO SCH (13:06)
[2022-07-16] MEDS: KETOROLAC 30 MG/1 ML VIAL IV SCH ×2 (14:00→20:08)
[2022-07-16] MEDS: CLINDAMYCIN INJ 900 MG/50 ML PREMIX IV SCH ×2 (15:05→23:17)
[2022-07-16 19:35] LABS: Basophils % 0.3 % (0.0-0.8); Eosinophils # 0.2 10*3/uL (0.0-0.87); Eosinophils % 1.5 % (0.00-10.9); Hematocrit 27.8 VOL% (35.7-47.0); Hemoglobin 9.1 GM/DL (12.0-16.0); Immature Granulocytes % 0.6 %; Immature Granulocytes Absolute 0.06 #; Lymphocytes # 1.5 10*3/uL (1.4-4.0); Lymphocytes % 14.9 % (21.3-54.2); Mean Corpuscular HGB Conc 32.7 GM/DL (32-36); Mean Corpuscular Volume 85.8 FL (87-102); Mean Platelet Volume 12.4 FL (9.6-12.0); Monocytes # 0.5 10*3/uL (0.11-0.8); Monocytes % 5.6 % (1.7-12.7); Neutrophils % 77.1 % (38.7-73.9); Platelet Count 140 T/CUMM (130-400); Red Blood Count 3.24 MC/CUMM (3.8-5.5); Red Cell Distribution Width 14.6 % (9.3-17.3); White Blood Count 9.7 T/CUMM (4-12)
[2022-07-17] MEDS: oxyCODONE/ACETAMINOPHEN 5-325 MG TABLET PO PRN ×5 (00:47→23:52)
[2022-07-17] MEDS: KETOROLAC 30 MG/1 ML VIAL IV SCH (01:50)
[2022-07-17] MEDS: DOCUSATE SODIUM 100 MG CAPSULE PO SCH ×3 (06:21→20:31)
[2022-07-17] MEDS: ACETAMINOPHEN 500 MG TABLET PO SCH ×2 (06:21→06:22)
[2022-07-17 06:30] LABS: Basophils % 0.2 % (0.0-0.8); Eosinophils # 0.2 10*3/uL (0.0-0.87); Eosinophils % 1.5 % (0.00-10.9); Hematocrit 27.2 VOL% (35.7-47.0); Immature Granulocytes % 0.5 %; Immature Granulocytes Absolute 0.06 #; Lymphocytes # 1.5 10*3/uL (1.4-4.0); Lymphocytes % 12.3 % (21.3-54.2); Mean Corpuscular HGB Conc 33.1 GM/DL (32-36); Mean Corpuscular Volume 85.5 FL (87-102); Mean Platelet Volume 12.7 FL (9.6-12.0); Monocytes # 1.1 10*3/uL (0.11-0.8); Neutrophils % 76.5 % (38.7-73.9); Platelet Count 136 T/CUMM (130-400); Red Blood Count 3.18 MC/CUMM (3.8-5.5); Red Cell Distribution Width 14.8 % (9.3-17.3); White Blood Count 12.4 T/CUMM (4-12)
[2022-07-17] MEDS: IBUPROFEN 800 MG TABLET PO PRN ×2 (07:35→15:18)
[2022-07-17] MEDS: MULTIVITAMIN (PRENATAL) TABLET PO SCH (08:35)
[2022-07-18] MEDS: IBUPROFEN 800 MG TABLET PO PRN ×2 (03:49→13:13)
[2022-07-18] MEDS: oxyCODONE/ACETAMINOPHEN 5-325 MG TABLET PO PRN (08:11)
[2022-07-18] MEDS: MULTIVITAMIN (PRENATAL) TABLET PO SCH (08:11)
[2022-07-18] MEDS: DOCUSATE SODIUM 100 MG CAPSULE PO SCH (08:11)
[2022-07-18 08:48] VITALS: BP 104/59
== END 2022-07-18 14:43 | disposition home or self-care (01) | DRG 785 ==
LOC: N.LD 05:54 → N.OB 11:25
PROVIDERS: ADMIT Obstetrics & Gynecology; ATTEND Obstetrics & Gynecology